=== PATIENT | female | born 1955 | race Two or more races ===

== ENCOUNTER 2020-12-07 17:45 | Emergency (ER) | payer BC, OTHER ==
[~2020-12-07] VITALS: Ht 162.6 cm; Wt 81.6 kg
[2020-12-07 19:19] LABS: Basophils # (auto) 0.1 10 ^3/uL (0-0.2); Basophils % (auto) 1.6 % (0.0-2.0); Eosinophils # (auto) 0.4 10 ^3/uL (0-0.8); Eosinophils % (auto) 5.6 % (0.0-7.0); Hematocrit 32.8 % (36.0-46.0); Lymphocytes # (auto) 1.1 10 ^3/uL (0.4-5.4); Lymphocytes % (auto) 15.8 % (10.0-50.0); Mean Corpuscular Hemoglobin 30.4 pg (28.0-32.0); Mean Corpuscular Hgb Conc. 33.5 g/dL (32.0-36.0); Mean Corpuscular Volume 90.9 fL (80.0-100.0); Monocytes # (auto) 0.7 10 ^3/uL (0-1.3); Monocytes % (auto) 9.5 % (0.0-12.0); Neutrophils # (auto) 4.9 10 ^3/uL (1.6-8.6); Neutrophils % (auto) 67.5 % (37.0-80.0); Platelet Count (auto) 319 10^3/uL (140-450); Red Blood Cells 3.61 10^6/uL (4.0-5.20); Red Cell Distribution Width 14.3 % (11.8-14.3); White Blood Cell 7.2 10^3/uL (4.4-10.8)
[2020-12-07 19:24] LABS: Albumin 2.7 g/dL (3.4-5.0); Calcium 8.3 mg/dL (8.5-10.1); Potassium 4.6 mmol/L (3.5-5.1)
[2020-12-07 19:26] LABS: BUN/Creatinine Ratio 16.2
[2020-12-07 19:42] LABS: Bilirubin, Total 0.2 mg/dL (0.2-1.0); Total Protein 6.9 g/dL (6.4-8.2)
[2020-12-07 19:53] LABS: INR 1.12 (0.9-1.15); Partial Thromboplastin Time 32.1 sec (23.0-31.2)
[2020-12-07 22:17] LABS: Urine Bacteria NONE SEEN /hpf (None Seen); Urine Blood Negative /uL (Negative); Urine Specific Gravity 1.015 (1.001-1.035); Urine WBC 131 /hpf (0 - 5); Urine WBC Clumps PRESENT /hpf (None Seen)
[2020-12-08] MEDS ORDERED: cefTRIAXone 1GM/50ML D5W 50 ML IV ONE
[2020-12-08 04:25] VITALS: BP 180/71
== END 2020-12-08 08:57 | disposition home or self-care (01) ==
LOC: ER 17:45 → EDBD 17:45 → ER 12-08 08:57
DX: N39.0 Urinary tract infection, site not specified (principal); I95.89 Other hypotension; R00.1 Bradycardia, unspecified; R42 Dizziness and giddiness; R09.02 Hypoxemia; E11.9 Type 2 diabetes mellitus without complications; E78.00 Pure hypercholesterolemia, unspecified; Z20.822 Contact with and (suspected) exposure to COVID-19; Z86.73 Personal history of transient ischemic attack (TIA), and cerebral infarction without residual deficits; Z90.49 Acquired absence of other specified parts of digestive tract
CPT/HCPCS: 36415; 71045; 80053; 81001; 82728; 84484; 85025; 85610; 85730; 87426; 93005; 96365; 99285; J0696

== ENCOUNTER 2022-10-05 11:45 | Inpatient (IN) | payer OTHER ==
[~2022-10-05] VITALS: Ht 157.5 cm; Wt 80.9 kg
[2022-10-05 12:46] LABS: Basophils # (auto) 0.1 10 ^3/uL (0-0.2); Hemoglobin 10.7 g/dL (12.2-16.2); Mean Corpuscular Hemoglobin 35.2 pg (28.0-32.0); Neutrophils % (auto) 79.3 % (37.0-80.0); Red Blood Cells 3.04 10^6/uL (4.0-5.20)
[2022-10-05 12:47] LABS: Basophils % (auto) 0.8 % (0.0-2.0); Eosinophils # (auto) 0.3 10 ^3/uL (0-0.8); Eosinophils % (auto) 2.1 % (0.0-7.0); Hematocrit 30.7 % (36.0-46.0); Lymphocytes # (auto) 0.9 10 ^3/uL (0.4-5.4); Lymphocytes % (auto) 7.4 % (10.0-50.0); Mean Corpuscular Hgb Conc. 34.8 g/dL (32.0-36.0); Mean Corpuscular Volume 101.1 fL (80.0-100.0); Monocytes # (auto) 1.3 10 ^3/uL (0-1.3); Monocytes % (auto) 10.4 % (0.0-12.0); Neutrophils # (auto) 9.6 10 ^3/uL (1.6-8.6); Red Cell Distribution Width 12.5 % (11.8-14.3); White Blood Cell 12.1 10^3/uL (4.4-10.8)
[2022-10-05 13:02] LABS: INR 1.12 (0.9-1.15); Partial Thromboplastin Time 36.7 sec (24.6-33.4)
[2022-10-05 13:03] LABS: Albumin 3.3 g/dL (3.4-5.0); Calcium 8.6 mg/dL (8.5-10.1); Magnesium 2.6 mg/dL (1.6-2.6); Potassium 4.4 mmol/L (3.5-5.1)
[2022-10-05 13:06] LABS: BUN/Creatinine Ratio 9.3; Bilirubin, Total 0.5 mg/dL (0.2-1.0); Total Protein 8.3 g/dL (6.4-8.2)
[2022-10-05] MEDS ORDERED: NITROGLYCERIN 0.4 MG SL TAB SL PRN (16:45)
[2022-10-05] MEDS ORDERED: ACETAMINOPHEN 325 MG TAB PO PRN (16:45)
[2022-10-05] MEDS ORDERED: HYDROcodone-ACET 5/325MG TAB PO PRN (16:45)
[2022-10-05] MEDS ORDERED: DOCUSATE SOD 100 MG CAP PO PRN (16:45)
[2022-10-05] MEDS ORDERED: MORPHINE SULFATE INJ 2 MG/ml SYRG IV PRN (16:45)
[2022-10-05] MEDS ORDERED: ONDANSETRON HCL 4 MG/2 ML VIAL IV PRN (16:45)
[2022-10-05] MEDS ORDERED: DEXTROSE (50%) 50ML SYRG IV PRN (16:45)
[2022-10-05] MEDS ORDERED: HYDR-4298 PO (16:48)
[2022-10-05] MEDS ORDERED: METO1TAB9 PO (16:48)
[2022-10-05] MEDS ORDERED: ATOR40TA52 PO (16:48)
[2022-10-05] MEDS: InsuLIN REG 1unit/0.01ml Soln (100units/ml) SC SCH ×2 (17:00→22:27)
[2022-10-05] MEDS: ACCU-CHEK COMFORT CURVE STRIP VI SCH ×2 (17:00→22:19)
[2022-10-05] MEDS: SODIUM CHLOR 0.9% PF (SALINE LOCK) 10ML VIAL/SYR IV SCH (22:09)
[2022-10-05] MEDS: ATORVASTATIN 20 MG TAB PO SCH (22:23)
[2022-10-05] MEDS: hydrALAZINE HCL 25 MG TAB PO SCH (22:23)
[2022-10-06] MEDS: SODIUM CHLOR 0.9% PF (SALINE LOCK) 10ML VIAL/SYR IV SCH ×3 (05:31→22:23)
[2022-10-06] MEDS: hydrALAZINE HCL 25 MG TAB PO SCH ×4 (05:46→22:25)
[2022-10-06 06:05] LABS: Basophils # (auto) 0.1 10 ^3/uL (0-0.2); Eosinophils # (auto) 0.5 10 ^3/uL (0-0.8); Eosinophils % (auto) 4.2 % (0.0-7.0); Hemoglobin 9.6 g/dL (12.2-16.2); Lymphocytes % (auto) 8.8 % (10.0-50.0); Mean Corpuscular Hemoglobin 37.1 pg (28.0-32.0); Mean Corpuscular Hgb Conc. 35.6 g/dL (32.0-36.0); Mean Corpuscular Volume 104.3 fL (80.0-100.0); Monocytes # (auto) 1.1 10 ^3/uL (0-1.3); Monocytes % (auto) 10.3 % (0.0-12.0); Neutrophils # (auto) 8.3 10 ^3/uL (1.6-8.6); Neutrophils % (auto) 75.7 % (37.0-80.0); Red Blood Cells 2.59 10^6/uL (4.0-5.20); Red Cell Distribution Width 12.5 % (11.8-14.3)
[2022-10-06 06:23] LABS: Potassium 4.6 mmol/L (3.5-5.1)
[2022-10-06 06:33] LABS: BUN/Creatinine Ratio 11.2; Bilirubin, Total 0.5 mg/dL (0.2-1.0); Calcium 8.4 mg/dL (8.5-10.1); Total Protein 6.9 g/dL (6.4-8.2)
[2022-10-06] MEDS: ACCU-CHEK COMFORT CURVE STRIP VI SCH ×4 (06:48→22:23)
[2022-10-06] MEDS: InsuLIN REG 1unit/0.01ml Soln (100units/ml) SC SCH ×4 (06:51→22:00)
[2022-10-06] MEDS: METOPROLOL SUCCINATE XL 50 MG TAB PO SCH (09:45)
[2022-10-06] MEDS ORDERED: PANTOPRAZOLE 40 MG/10 ML VIAL INJ IV SCH (10:00)
[2022-10-06] MEDS: FUROSEMIDE 100 MG/10ML VIAL IV SCH (17:45)
[2022-10-06] MEDS: ATORVASTATIN 20 MG TAB PO SCH (22:24)
[2022-10-06 23:32] VITALS: BP 131/34
[2022-10-07] VITALS (7 sets, daily range): BP systolic 102–163; BP diastolic 36–58
[2022-10-07] MEDS ORDERED: ASPI1TAB20 PO (01:10)
[2022-10-07] MEDS ORDERED: NIFE1TAB30 PO (01:10)
[2022-10-07] MEDS ORDERED: DOCU100T15 PO (01:10)
[2022-10-07] MEDS ORDERED: ESCI-28 PO (01:10)
[2022-10-07] MEDS ORDERED: FERR1TAB17 PO (01:10)
[2022-10-07] MEDS ORDERED: FURO40TA4 PO (01:10)
[2022-10-07] MEDS ORDERED: B-CO-5 PO (01:10)
[2022-10-07] MEDS ORDERED: POLY33504 PO (01:10)
[2022-10-07] MEDS ORDERED: MELA3TAB27 PO (01:10)
[2022-10-07] MEDS ORDERED: INSU1INJ19 SC (01:10)
[2022-10-07] MEDS ORDERED: TRAZ-181 PO (01:10)
[2022-10-07] MEDS: SODIUM CHLOR 0.9% PF (SALINE LOCK) 10ML VIAL/SYR IV SCH ×3 (06:00→22:18)
[2022-10-07] MEDS: hydrALAZINE HCL 25 MG TAB PO SCH ×3 (06:44→22:00)
[2022-10-07] MEDS: InsuLIN REG 1unit/0.01ml Soln (100units/ml) SC SCH ×4 (06:45→22:15)
[2022-10-07] MEDS: ACCU-CHEK COMFORT CURVE STRIP VI SCH ×4 (06:45→22:13)
[2022-10-07] MEDS: FUROSEMIDE 100 MG/10ML VIAL IV SCH ×2 (06:45→17:56)
[2022-10-07 07:42] LABS: Calcium 8.7 mg/dL (8.5-10.1); Magnesium 2.2 mg/dL (1.6-2.6); Potassium 3.6 mmol/L (3.5-5.1)
[2022-10-07 07:44] LABS: BUN/Creatinine Ratio 9.2; Phosphorus 3.8 mg/dL (2.5-4.90)
[2022-10-07] MEDS: METOPROLOL SUCCINATE XL 50 MG TAB PO SCH (11:03)
[2022-10-07] MEDS: ATORVASTATIN 20 MG TAB PO SCH (22:19)
[2022-10-08 05:00] VITALS: BP 149/58
[2022-10-08] MEDS: FUROSEMIDE 100 MG/10ML VIAL IV SCH ×2 (06:00→18:00)
[2022-10-08] MEDS: hydrALAZINE HCL 25 MG TAB PO SCH ×3 (06:00→21:32)
[2022-10-08] MEDS: SODIUM CHLOR 0.9% PF (SALINE LOCK) 10ML VIAL/SYR IV SCH ×3 (06:15→21:27)
[2022-10-08 06:33] LABS: BUN/Creatinine Ratio 9.9; Calcium 8.5 mg/dL (8.5-10.1); Potassium 3.7 mmol/L (3.5-5.1)
[2022-10-08] MEDS: InsuLIN REG 1unit/0.01ml Soln (100units/ml) SC SCH ×4 (06:37→21:21)
[2022-10-08] MEDS: ACCU-CHEK COMFORT CURVE STRIP VI SCH ×4 (06:37→21:24)
[2022-10-08 08:00] VITALS: BP 152/47
[2022-10-08 09:00] VITALS: BP 152/47
[2022-10-08] MEDS: METOPROLOL SUCCINATE XL 50 MG TAB PO SCH (11:22)
[2022-10-08 11:45] LABS: Hepatitis A Ab IgM Negative
[2022-10-08 11:46] LABS: Hepatitis B Core IgM Negative; Hepatitis C Antibody Negative (Negative)
[2022-10-08 13:00] VITALS: BP 152/46
[2022-10-08 17:00] VITALS: BP 189/71
[2022-10-08] MEDS ORDERED: EPOETIN ALFA-EPBX 4,000 UNIT/ML VIAL SC ONE (21:00)
[2022-10-08] MEDS: ATORVASTATIN 20 MG TAB PO SCH (21:27)
[2022-10-08 22:00] VITALS: BP 126/58
[2022-10-09 05:00] VITALS: BP 139/60
[2022-10-09] MEDS: SODIUM CHLOR 0.9% PF (SALINE LOCK) 10ML VIAL/SYR IV SCH ×3 (05:47→21:48)
[2022-10-09] MEDS: FUROSEMIDE 100 MG/10ML VIAL IV SCH ×2 (05:47→19:38)
[2022-10-09] MEDS: hydrALAZINE HCL 25 MG TAB PO SCH ×3 (05:47→21:50)
[2022-10-09] MEDS: ACCU-CHEK COMFORT CURVE STRIP VI SCH ×4 (05:53→21:49)
[2022-10-09] MEDS: InsuLIN REG 1unit/0.01ml Soln (100units/ml) SC SCH ×4 (05:53→21:50)
[2022-10-09 08:00] VITALS: BP 117/68
[2022-10-09 09:04] VITALS: BP 153/38
[2022-10-09] MEDS: METOPROLOL SUCCINATE XL 50 MG TAB PO SCH (09:08)
[2022-10-09 12:35] VITALS: BP 150/36
[2022-10-09 17:21] VITALS: BP 161/43
[2022-10-09] MEDS: ATORVASTATIN 20 MG TAB PO SCH (21:49)
[2022-10-09 22:00] VITALS: BP 142/42
[2022-10-10 05:00] VITALS: BP 149/40
[2022-10-10] MEDS: SODIUM CHLOR 0.9% PF (SALINE LOCK) 10ML VIAL/SYR IV SCH ×2 (05:24→14:00)
[2022-10-10] MEDS: FUROSEMIDE 100 MG/10ML VIAL IV SCH ×2 (05:24→17:42)
[2022-10-10] MEDS: hydrALAZINE HCL 25 MG TAB PO SCH ×2 (05:25→14:00)
[2022-10-10 05:52] LABS: Basophils % (auto) 1.4 % (0.0-2.0); Monocytes # (auto) 1.1 10 ^3/uL (0-1.3); White Blood Cell 10.6 10^3/uL (4.4-10.8)
[2022-10-10 05:55] LABS: Basophils # (auto) 0.1 10 ^3/uL (0-0.2); Eosinophils # (auto) 0.7 10 ^3/uL (0-0.8); Eosinophils % (auto) 6.6 % (0.0-7.0); Hematocrit 29.6 % (36.0-46.0); Hemoglobin 10.6 g/dL (12.2-16.2); Lymphocytes # (auto) 2.1 10 ^3/uL (0.4-5.4); Lymphocytes % (auto) 20.3 % (10.0-50.0); Mean Corpuscular Hemoglobin 35.8 pg (28.0-32.0); Mean Corpuscular Hgb Conc. 35.7 g/dL (32.0-36.0); Mean Corpuscular Volume 100.2 fL (80.0-100.0); Monocytes % (auto) 10.7 % (0.0-12.0); Neutrophils # (auto) 6.4 10 ^3/uL (1.6-8.6); Nucleated Red Blood Cells % 0.1 %; Red Blood Cells 2.95 10^6/uL (4.0-5.20); Red Cell Distribution Width 12.2 % (11.8-14.3)
[2022-10-10 06:22] LABS: Potassium 3.8 mmol/L (3.5-5.1)
[2022-10-10] MEDS: InsuLIN REG 1unit/0.01ml Soln (100units/ml) SC SCH ×3 (06:26→17:00)
[2022-10-10] MEDS: ACCU-CHEK COMFORT CURVE STRIP VI SCH ×3 (06:27→17:00)
[2022-10-10 06:28] LABS: BUN/Creatinine Ratio 9.9
[2022-10-10] MEDS: METOPROLOL SUCCINATE XL 50 MG TAB PO SCH (08:56)
[2022-10-10 09:00] VITALS: BP 139/32
[2022-10-10] MEDS ORDERED: SODIUM CHL 0.9% 1000 ML BAG XX ONE (11:30)
[2022-10-10 13:00] VITALS: BP 176/46
[2022-10-10 15:21] VITALS: BP 139/32
[2022-10-10 17:00] VITALS: BP 130/60
[2022-10-10] MEDS ORDERED: EPOETIN ALFA-EPBX 10,000 UNIT/1ML VIAL SC ONE (21:00)
== END 2022-10-10 19:10 | disposition home or self-care (01) | DRG 682 ==
LOC: ER 11:45 → TELE 16:48 → TELE-CENTR 10-06 22:37
PROVIDERS: ADMIT Nurse Practitioner Family; ATTEND Internal Medicine Geriatric Medicine
PROC: 5A1D70Z Performance of Urinary Filtration, Intermittent, Less than 6 Hours Per Day (ICD-10-PCS; principal; 2022-10-06)
PROC: 5A1D70Z Performance of Urinary Filtration, Intermittent, Less than 6 Hours Per Day (ICD-10-PCS; 2022-10-08)
DX: I12.0 Hypertensive chronic kidney disease with stage 5 chronic kidney disease or end stage renal disease (principal); N18.6 End stage renal disease; E46 Unspecified protein-calorie malnutrition; I69.351 Hemiplegia and hemiparesis following cerebral infarction affecting right dominant side; E11.22 Type 2 diabetes mellitus with diabetic chronic kidney disease; Z20.822 Contact with and (suspected) exposure to COVID-19; D72.829 Elevated white blood cell count, unspecified; E78.5 Hyperlipidemia, unspecified; Z91.15 Patient's noncompliance with renal dialysis; Z99.2 Dependence on renal dialysis; Z88.5 Allergy status to narcotic agent; Z83.3 Family history of diabetes mellitus; Z82.49 Family history of ischemic heart disease and other diseases of the circulatory system; Z68.32 Body mass index [BMI] 32.0-32.9, adult
CPT/HCPCS: 36415; 71046; 80048; 80053; 80074; 82306; 82962; 83735; 83970; 84100; 85025; 85610; 85730; 87426; 90935; 93005; C9113; G0378; J1815

== ENCOUNTER 2022-11-12 09:54 | Inpatient (IN) | payer OTHER ==
[~2022-11-12] VITALS: Ht 157.5 cm; Wt 85.5 kg
[~2022-11-12 09:54] MED LIST: ASPI1TAB20 PO; ATOR40TA52 PO; DOCU100T15 PO; ESCI-28 PO; FERR1TAB17 PO; FURO40TA4 PO; HYDR-4298 PO; INSU1INJ19 SC; MELA3TAB27 PO; METO1TAB9 PO; NIFE1TAB30 PO; POLY33504 PO; TRAZ-181 PO
[2022-11-12 10:39] LABS: Basophils # (auto) 0.1 10 ^3/uL (0-0.2); Basophils % (auto) 0.4 % (0.0-2.0); Eosinophils # (auto) 0 10 ^3/uL (0-0.8); Eosinophils % (auto) 0.2 % (0.0-7.0); Hemoglobin 11.7 g/dL (12.2-16.2); Lymphocytes % (auto) 4.7 % (10.0-50.0); Mean Corpuscular Hemoglobin 32.9 pg (28.0-32.0); Mean Corpuscular Hgb Conc. 32.5 g/dL (32.0-36.0); Mean Corpuscular Volume 101.5 fL (80.0-100.0); Monocytes # (auto) 1.7 10 ^3/uL (0-1.3); Monocytes % (auto) 7.7 % (0.0-12.0); Neutrophils # (auto) 18.8 10 ^3/uL (1.6-8.6); Red Blood Cells 3.55 10^6/uL (4.0-5.20); White Blood Cell 21.5 10^3/uL (4.4-10.8)
[2022-11-12 10:57] LABS: Albumin 2.7 g/dL (3.4-5.0); BUN/Creatinine Ratio 8.4 (10.0-20.0); Calcium 8.2 mg/dL (8.5-10.1); Potassium 4.6 mmol/L (3.5-5.1)
[2022-11-12 11:09] LABS: Bilirubin, Total 0.3 mg/dL (0.2-1.0); Total Protein 7.5 g/dL (6.4-8.2)
[2022-11-12] MEDS ORDERED: FUROSEMIDE 40 MG/4 ML VIAL IV ONE (12:15)
[2022-11-12] MEDS ORDERED: PIPERACILLIN-TAZOB 2.25GM 50 ML IV ONE (12:15)
[2022-11-12] MEDS ORDERED: ACETAMINOPHEN 325 MG TAB PO PRN (12:30)
[2022-11-12] MEDS ORDERED: NITROGLYCERIN 0.4 MG SL TAB SL PRN (12:30)
[2022-11-12] MEDS ORDERED: MORPHINE SULFATE INJ 2 MG/ml SYRG IV PRN (12:30)
[2022-11-12] MEDS ORDERED: DOCUSATE SOD 100 MG CAP PO PRN (12:30)
[2022-11-12] MEDS ORDERED: HYDROcodone-ACET 5/325MG TAB PO PRN (12:30)
[2022-11-12] MEDS ORDERED: ONDANSETRON HCL 4 MG/2 ML VIAL IV PRN (12:30)
[2022-11-12] MEDS ORDERED: IPRATROPIUM BROM 0.5 MG/2.5ML INH SOL NEB PRN (13:30)
[2022-11-12] MEDS ORDERED: ALBUTEROL SULF 2.5 MG/0.5ML(0.5%) NEB SOLN NEB PRN (13:30)
[2022-11-12 13:38] VITALS: BP 135/45
[2022-11-12] MEDS ORDERED: DEXTROSE (50%) 50ML SYRG IV PRN (13:45)
[2022-11-12] MEDS: SODIUM CHLOR 0.9% PF (SALINE LOCK) 10ML VIAL/SYR IV SCH ×2 (14:00→23:09)
[2022-11-12] MEDS: hydrALAZINE HCL 25 MG TAB PO SCH ×2 (15:11→23:15)
[2022-11-12] MEDS: InsuLIN REG 1unit/0.01ml Soln (100units/ml) SC SCH ×2 (17:00→23:08)
[2022-11-12] MEDS: ACCU-CHEK COMFORT CURVE STRIP VI SCH ×2 (17:03→23:08)
[2022-11-12] MEDS: FUROSEMIDE 40 MG TAB PO SCH (18:00)
[2022-11-12] MEDS ORDERED: MELATONIN 5 MG TAB PO SCH (18:00)
[2022-11-12] MEDS: MELATONIN 5 MG TAB PO SCH (21:59)
[2022-11-13 05:12] LABS: Basophils # (auto) 0.1 10 ^3/uL (0-0.2); Basophils % (auto) 0.3 % (0.0-2.0); Eosinophils # (auto) 0.2 10 ^3/uL (0-0.8); Hematocrit 32.2 % (36.0-46.0); Hemoglobin 10.7 g/dL (12.2-16.2); Lymphocytes # (auto) 1.2 10 ^3/uL (0.4-5.4); Lymphocytes % (auto) 5.5 % (10.0-50.0); Mean Corpuscular Hemoglobin 33.7 pg (28.0-32.0); Mean Corpuscular Hgb Conc. 33.3 g/dL (32.0-36.0); Mean Corpuscular Volume 101.3 fL (80.0-100.0); Monocytes # (auto) 1.5 10 ^3/uL (0-1.3); Monocytes % (auto) 6.8 % (0.0-12.0); Neutrophils # (auto) 19.1 10 ^3/uL (1.6-8.6); Neutrophils % (auto) 86.4 % (37.0-80.0); Red Blood Cells 3.18 10^6/uL (4.0-5.20); Red Cell Distribution Width 14.2 % (11.8-14.3); White Blood Cell 22.1 10^3/uL (4.4-10.8)
[2022-11-13 05:28] LABS: Albumin 2.4 g/dL (3.4-5.0); BUN/Creatinine Ratio 8.8 (10.0-20.0); Calcium 8.5 mg/dL (8.5-10.1); Potassium 4.6 mmol/L (3.5-5.1)
[2022-11-13 05:30] LABS: Bilirubin, Total 0.4 mg/dL (0.2-1.0); Total Protein 7.2 g/dL (6.4-8.2)
[2022-11-13] MEDS: SODIUM CHLOR 0.9% PF (SALINE LOCK) 10ML VIAL/SYR IV SCH ×3 (06:00→21:44)
[2022-11-13] MEDS: FUROSEMIDE 40 MG TAB PO SCH ×2 (06:43→17:30)
[2022-11-13] MEDS: hydrALAZINE HCL 25 MG TAB PO SCH ×3 (06:45→21:52)
[2022-11-13] MEDS: InsuLIN REG 1unit/0.01ml Soln (100units/ml) SC SCH ×4 (06:56→22:00)
[2022-11-13] MEDS: ACCU-CHEK COMFORT CURVE STRIP VI SCH ×4 (06:56→21:53)
[2022-11-13] MEDS ORDERED: SODIUM CHL 0.9% 1000 ML BAG XX ONE (07:00)
[2022-11-13] MEDS ORDERED: CITALOPRAM HYDROBR 20 MG TAB PO SCH (10:00)
[2022-11-13] MEDS ORDERED: PANTOPRAZOLE 40 MG/10 ML VIAL INJ IV SCH (10:00)
[2022-11-13] MEDS: ATORVASTATIN 20 MG TAB PO SCH (10:03)
[2022-11-13] MEDS: AZITHROMYCIN 500MG/ 250ML 250 ML IV SCH (10:03)
[2022-11-13] MEDS: ASPirin-EC 81 mg tab PO SCH (10:04)
[2022-11-13] MEDS: NIFEdipine ER 30 MG TAB PO SCH (10:04)
[2022-11-13] MEDS: METOPROLOL SUCCINATE XL 50 MG TAB PO SCH (10:05)
[2022-11-13] MEDS ORDERED: cefTRIAXone 1GM/50ML D5W 50 ML IV ONE (12:00)
[2022-11-13] MEDS: CITALOPRAM HYDROBR 20 MG TAB PO SCH (13:02)
[2022-11-13 16:30] VITALS: BP 117/57
[2022-11-13 17:17] VITALS: BP 117/59
[2022-11-13 17:40] VITALS: BP 117/57
[2022-11-13] MEDS ORDERED: TRAZ-181 PO (19:07)
[2022-11-13] MEDS ORDERED: METO-289 PO (19:07)
[2022-11-13] MEDS ORDERED: POM PO (19:07)
[2022-11-13] MEDS ORDERED: INSU1INJ19 SC (19:07)
[2022-11-13] MEDS ORDERED: MULT-1058 PO (19:07)
[2022-11-13] MEDS ORDERED: SEVE800T8 PO (19:07)
[2022-11-13] MEDS ORDERED: HYDR50TA15 PO (19:07)
[2022-11-13 20:00] VITALS: BP 89/111
[2022-11-13 21:54] VITALS: BP 139/60
[2022-11-13] MEDS: MELATONIN 5 MG TAB PO SCH (22:00)
[2022-11-14 05:00] VITALS: BP 160/51
[2022-11-14] MEDS: SODIUM CHLOR 0.9% PF (SALINE LOCK) 10ML VIAL/SYR IV SCH ×3 (06:15→22:24)
[2022-11-14] MEDS: FUROSEMIDE 40 MG TAB PO SCH ×2 (06:16→18:20)
[2022-11-14] MEDS: hydrALAZINE HCL 25 MG TAB PO SCH ×3 (06:16→22:00)
[2022-11-14 06:35] LABS: Basophils # (auto) 0.1 10 ^3/uL (0-0.2); Basophils % (auto) 0.5 % (0.0-2.0); Eosinophils # (auto) 0.5 10 ^3/uL (0-0.8); Eosinophils % (auto) 4.3 % (0.0-7.0); Hematocrit 31.6 % (36.0-46.0); Hemoglobin 10.5 g/dL (12.2-16.2); Lymphocytes # (auto) 0.9 10 ^3/uL (0.4-5.4); Mean Corpuscular Hemoglobin 33.6 pg (28.0-32.0); Mean Corpuscular Hgb Conc. 33.3 g/dL (32.0-36.0); Monocytes % (auto) 8.2 % (0.0-12.0); Neutrophils # (auto) 10.2 10 ^3/uL (1.6-8.6); Red Blood Cells 3.13 10^6/uL (4.0-5.20); Red Cell Distribution Width 13.8 % (11.8-14.3); White Blood Cell 12.8 10^3/uL (4.4-10.8)
[2022-11-14] MEDS: ACCU-CHEK COMFORT CURVE STRIP VI SCH ×4 (06:42→22:25)
[2022-11-14] MEDS: InsuLIN REG 1unit/0.01ml Soln (100units/ml) SC SCH ×4 (06:47→22:30)
[2022-11-14 07:19] LABS: Calcium 7.7 mg/dL (8.5-10.1); Potassium 4.5 mmol/L (3.5-5.1)
[2022-11-14 07:21] LABS: BUN/Creatinine Ratio 8.7 (10.0-20.0)
[2022-11-14 08:30] VITALS: BP 117/33
[2022-11-14 09:00] VITALS: BP 117/33
[2022-11-14] MEDS: cefTRIAXone 1GM/50ML D5W 50 ML IV SCH (09:29)
[2022-11-14] MEDS: NIFEdipine ER 30 MG TAB PO SCH (10:09)
[2022-11-14] MEDS: METOPROLOL SUCCINATE XL 50 MG TAB PO SCH (10:09)
[2022-11-14] MEDS: ASPirin-EC 81 mg tab PO SCH (10:09)
[2022-11-14] MEDS: AZITHROMYCIN 500MG/ 250ML 250 ML IV SCH (10:09)
[2022-11-14] MEDS: ATORVASTATIN 20 MG TAB PO SCH (10:09)
[2022-11-14] MEDS: CITALOPRAM HYDROBR 20 MG TAB PO SCH (10:09)
[2022-11-14 13:00] VITALS: BP 128/58
[2022-11-14 17:00] VITALS: BP 126/34
[2022-11-14 22:00] VITALS: BP 116/38
[2022-11-14] MEDS: MELATONIN 5 MG TAB PO SCH (22:00)
[2022-11-15] VITALS (7 sets, daily range): BP systolic 109–139; BP diastolic 34–64
[2022-11-15] MEDS: hydrALAZINE HCL 25 MG TAB PO SCH ×2 (06:00→15:27)
[2022-11-15] MEDS: SODIUM CHLOR 0.9% PF (SALINE LOCK) 10ML VIAL/SYR IV SCH ×2 (06:09→15:38)
[2022-11-15] MEDS: ACCU-CHEK COMFORT CURVE STRIP VI SCH ×3 (06:37→17:02)
[2022-11-15] MEDS: FUROSEMIDE 40 MG TAB PO SCH (06:38)
[2022-11-15] MEDS: InsuLIN REG 1unit/0.01ml Soln (100units/ml) SC SCH ×3 (06:38→17:00)
[2022-11-15] MEDS: ATORVASTATIN 20 MG TAB PO SCH (09:42)
[2022-11-15] MEDS: ASPirin-EC 81 mg tab PO SCH (09:42)
[2022-11-15] MEDS: cefTRIAXone 1GM/50ML D5W 50 ML IV SCH (09:42)
[2022-11-15] MEDS: CITALOPRAM HYDROBR 20 MG TAB PO SCH (09:43)
[2022-11-15] MEDS: NIFEdipine ER 30 MG TAB PO SCH (09:45)
[2022-11-15] MEDS: METOPROLOL SUCCINATE XL 50 MG TAB PO SCH (09:46)
[2022-11-15] MEDS: AZITHROMYCIN 500MG/ 250ML 250 ML IV SCH (11:36)
[2022-11-15] MEDS ORDERED: DOXY-340 PO (14:15)
[2022-11-15] MEDS ORDERED: POM PO (14:15)
[2022-11-16 15:21] LABS: Hepatitis A Ab IgM Negative
[2022-11-16 15:22] LABS: Hepatitis B Core IgM Negative
[2022-11-16 15:23] LABS: Hepatitis C Antibody Negative (Negative)
[2022-11-16 16:08] LABS: Hepatitis C Antibody Negative (Negative)
== END 2022-11-15 17:50 | disposition home or self-care (01) | DRG 193 ==
LOC: ER 09:54 → TELE 13:03 → TELE-CENTR 11-13 17:13
PROVIDERS: ADMIT Nurse Practitioner Family; ATTEND Internal Medicine Geriatric Medicine
PROC: 5A1D70Z Performance of Urinary Filtration, Intermittent, Less than 6 Hours Per Day (ICD-10-PCS; principal; 2022-11-13)
DX: J18.9 Pneumonia, unspecified organism (principal); J96.01 Acute respiratory failure with hypoxia; N18.6 End stage renal disease; I13.2 Hypertensive heart and chronic kidney disease with heart failure and with stage 5 chronic kidney disease, or end stage renal disease; J98.11 Atelectasis; J90 Pleural effusion, not elsewhere classified; I69.351 Hemiplegia and hemiparesis following cerebral infarction affecting right dominant side; Z20.822 Contact with and (suspected) exposure to COVID-19; D72.829 Elevated white blood cell count, unspecified; E11.22 Type 2 diabetes mellitus with diabetic chronic kidney disease; E66.01 Morbid (severe) obesity due to excess calories; E78.5 Hyperlipidemia, unspecified; I50.9 Heart failure, unspecified; Z88.1 Allergy status to other antibiotic agents; Z99.2 Dependence on renal dialysis; Z82.49 Family history of ischemic heart disease and other diseases of the circulatory system; Z83.3 Family history of diabetes mellitus; Z90.49 Acquired absence of other specified parts of digestive tract; Z88.5 Allergy status to narcotic agent; Z79.82 Long term (current) use of aspirin; Z79.4 Long term (current) use of insulin; Z79.899 Other long term (current) drug therapy; Z80.6 Family history of leukemia; Z68.34 Body mass index [BMI] 34.0-34.9, adult
CPT/HCPCS: 36415; 71045; 80048; 80053; 80074; 82962; 83605; 83880; 84484; 85025; 86803; 87040; 87081; 87340; 87426; 87804; 90935; 93005; 96374; G0378; J0696; J1815; J2543